=== PATIENT | female | born 1990 | race Caucasian/White ===

== ENCOUNTER → 2021-03-04 | Outpatient (CLI) | payer MEDICAID ==
--- NOTE | 2021-03-04 11:42 | REP ---
INDICATION: RT WRIST PAIN LT KNEE PAIN. COMPARISON: None. TECHNIQUE: Three views of the right wrist are provided. FINDINGS: Overall mineralization pattern is normal. Joint spaces are preserved. Alignment is normal. Periarticular soft tissues are unremarkable. There is no evidence of fracture or arthropathy. IMPRESSION: Negative radiographs of the right wrist. <Electronically signed by Kehinde Lang > 03/04/21 [id number]
--- NOTE | 2021-03-04 11:43 | REP ---
INDICATION: LT WRIST PAIN LT KNEE PAIN. COMPARISON: None. TECHNIQUE: Three views of the left knee are provided. FINDINGS: Patient is status post ACL reconstruction. A metallic fixation device is seen along the left lateral cortex of the distal femur and femoral and tibial tunnels are noted. Joint space is preserved. There is no evidence of joint effusion. No erosive change is seen. IMPRESSION: Patient is status post ACL reconstruction surgery. Otherwise no acute abnormality. <Electronically signed by Kehinde Lang > 03/04/21 [id number]
== END ==
LOC: M SOG 10:46
PROVIDERS: ATTEND Orthopaedic Surgery
DX: M25.562 Pain in left knee (principal); M25.531 Pain in right wrist

== ENCOUNTER → 2021-05-12 | Outpatient (CLI) | payer MEDICAID, OTHER ==
[2021-05-12 17:51] LABS: BASO % 0.2 % (0.0-1.0); EOS # 0.1 10^3/uL (0.0-0.5); EOS % 1.7 % (0.0-3.0); HEMATOCRIT 41.3 % (36.0-47.0); HEMOGLOBIN 14.4 g/dl (12.0-15.5); LYMPH # 1.7 10^3/uL (1.5-5.0); LYMPH % 29.3 % (24.0-44.0); MEAN CORPUSCULAR HEMOGLOBIN 30.8 pg (27.0-33.0); MEAN CORPUSCULAR HGB CONC 34.9 g/dl (32.0-36.5); MEAN CORPUSCULAR VOLUME 88.4 fl (80.0-96.0); MONO # 0.3 10^3/uL (0.0-0.8); MONO % 5.8 % (2.0-8.0); NEUTROPHILS # 3.7 10^3/uL (1.5-8.5); PLATELET COUNT, AUTOMATED 303 10^3/uL (150-450); RED BLOOD COUNT 4.67 10^6/uL (4.00-5.40); WHITE BLOOD COUNT 5.9 10^3/uL (4.0-10.0)
[2021-05-12 18:21] LABS: BLOOD UREA NITROGEN 12 MG/DL (7-18); CALCIUM LEVEL 9.2 MG/DL (8.5-10.1); CARBON DIOXIDE LEVEL 28 MEQ/L (21-32); CHLORIDE LEVEL 106 MEQ/L (98-107); CREATININE FOR GFR 0.65 MG/DL (0.55-1.30); FERRITIN 9 NG/ML (8-252); GLOMERULAR FILTRATION RATE > 60.0 (>60); GLUCOSE, FASTING 105 MG/DL (70-100); IRON (FE) 72 UG/DL (50-170); PERCENT SATURATION 21.4 % (13.2-45.0); POTASSIUM SERUM 4.2 MEQ/L (3.5-5.1); SODIUM LEVEL 139 MEQ/L (136-145); TOTAL IRON BINDING CAPACITY 336 UG/DL (250-450)
== END ==
LOC: M PLALAB 14:33
PROVIDERS: ATTEND Student in an Organized Health Care Education/Training Program
DX: Z86.2 Personal history of diseases of the blood and blood-forming organs and certain disorders involving the immune mechanism (principal)